=== PATIENT | female | born 1970 | race Caucasian/White ===

== ENCOUNTER 2023-07-25 23:56 | Emergency (ER) | payer BC, SELFPAY ==
[2023-07-25 23:59] VITALS: BP 141/61; PULSE 65; RESP 20; TEMP 36.7; O2SAT 99
--- NOTE | 2023-07-26 01:20 | ED.WOUNDLAC ---
HPI - Wound/Laceration General Chief Complaint: Wound/Laceration Stated Complaint: laceration to earlobe Time Seen by Provider: 07/26/23 01:04 History of Present Illness HPI narrative: 52-year-old female reports for evaluation for a laceration to her left earlobe. Patient states her was accusing her good night approximately 2 and half hours ago when the patient's earring got stuck on the 's nose and ripped her earring out of her lobe. Bleeding controlled. Tetanus not up to date. Related Data Home Medications Medication Instructions Recorded Confirmed No Home Medications 11/20/21 Allergies Allergy/AdvReac Type Severity Reaction Status Date / Time azithromycin Allergy Unknown Unknown Verified 07/26/23 01:08 erythromycin base Allergy Unknown Acute Verified 07/26/23 01:08 abdominal pain Review of Systems Review of Systems: CONSTITUTIONAL: Denies fever, chills EYES: Denies visual changes, redness, or discharge. ENT: Denies rhinorrhea, congestion, sore throat, or otalgia. CARDIOVASCULAR: Denies chest pain, palpitations, or edema. RESPIRATORY: Denies cough or dyspnea. GASTROINTESTINAL: Denies abdominal pain, nausea, vomiting, or diarrhea. GENITOURINARY: Denies dysuria or hematuria. SKIN: See HPI MUSCULOSKELETAL: Denies back pain, joint pain, or myalgia. NEUROLOGIC: Denies headache, numbness, dizziness, or weakness. PSYCHIATRIC: Denies anxiety or depression. [facility] Past Medical History Medical History History of Corcoran's palsy Surgical History Surgical History History of appendectomy (~1982) History of cholecystectomy (~2004) History of hysterectomy (~2015) History of hysteroscopy (~2015) History of laparoscopy (~1989) Exploratory Social History Social History Smoking status: Former smoker Smoking end date: 10/28/01 Alcohol intake: current Exam Narrative: GENERAL: Well-appearing, in no acute distress. Patient resting comfortably in exam bed. She is pleasant and conversational. HEAD: Normocephalic EYES: PERRLA ENT: Nares clear. Mucous membranes moist. Oropharynx without tonsillar hypertrophy exudate or other lesions. Bilateral TMs are villa nonbulging. Normal canals. NECK: Supple. CHEST: No respiratory distress. Clear to auscultation, no adventitious breath sounds. HEART: Regular rate and rhythm. No murmur heard. Normal peripheral pulses. EXTREMITIES: Normal range of motion. No edema. SKIN: Left lobule with linear through and through laceration extending from the earring hole distally. No compromise to cartilage remainder of auricle. Bleeding controlled. NEURO: No focal deficits. Alert and oriented x3. PSYCH: Normal mood and affect. Course Vital Signs Vital signs: Vital Signs Temperature 98.1 F 07/25/23 23:59 Pulse Rate 65 07/25/23 23:59 Respiratory Rate 20 07/25/23 23:59 Blood Pressure 141/61 H 07/25/23 23:59 Pulse Oximetry 99 07/25/23 23:59 Oxygen Delivery Room Air 07/25/23 23:59 Temperature 98.1 F 07/25/23 23:59 Pulse Rate 65 07/25/23 23:59 Respiratory Rate 20 07/25/23 23:59 Blood Pressure 141/61 H 07/25/23 23:59 Pulse Oximetry 99 07/25/23 23:59 Oxygen Delivery Room Air 07/25/23 23:59 Procedures Laceration Laceration 1: Date: 07/26/23 Time: 02:24 Site: other (Left lobule) Side (If applicable): left Size (cm): 1 Description: linear Depth: [id number] Local Anesthetic: lidocaine 1% Amount of anesthesia used (mL): 5 Pre-repair: wound explored, irrigated and irrigated extensively ====== Skin Level ====== Skin layer closed with: nylon Size (cm): 6-0 Number of sutures: 3 Technique: simple, interrupted ====== Subcutaneous Laye
[2023-07-26] MEDS: TETANUS,DIPHTHERIA,AC PERTUSSIS ADULT (0.5 ML) BOOSTRIX IM (01:33)
[2023-07-26] MEDS: LIDOCAINE HCL 1% LOCAL INJ 10 ML VIAL INFILTRATE (01:33)
[2023-07-26 02:37] VITALS: BP 122/80; PULSE 55; RESP 20; O2SAT 100
== END 2023-07-26 02:38 | disposition home or self-care (01) ==
PROVIDERS: Emergency Provider Physician Assistant; PCP Family Medicine
DX: S01.312A Laceration without foreign body of left ear, initial encounter (principal); Z23 Encounter for immunization; Z87.891 Personal history of nicotine dependence; Z90.49 Acquired absence of other specified parts of digestive tract; Z90.710 Acquired absence of both cervix and uterus; X58.XXXA Exposure to other specified factors, initial encounter
CPT/HCPCS: 12051; 90471; 90715; 99282

== ENCOUNTER 2024-12-14 18:50 | Emergency (ER) | payer BC, SELFPAY ==
--- NOTE | 2024-12-14 18:51 | ED.URI ---
HPI - URI/Sore Throat General Chief Complaint: Upper Respiratory Infection Stated Complaint: Cough Time Seen by Provider: 12/14/24 18:50 Source: patient Mode of arrival: ambulatory Limitations: no limitations History of Present Illness HPI Narrative: Mary is a 54-year-old female patient presenting to the clinic today with complaints of a cough, chest congestion, and sinus congestion x8 days. She reports she is getting over influenza. Started to feel better for a day or 2 but then her symptoms came back. Has felt feverish. Does have some shortness of breath. States she is coughing up green phlegm but blowing out clear nasal drainage MD elicited complaint: fever, cough, nasal congestion and other (Chest congestion) Related Data Allergies Allergy/AdvReac Type Severity Reaction Status Date / Time azithromycin Allergy Unknown Unknown Verified 12/14/24 18:51 erythromycin base Allergy Unknown Acute Verified 12/14/24 18:51 abdominal pain Review of Systems Review of Systems: Pertinent positives per HPI. Patient denies any fever, chills, rash, headache, visual changes, dizziness, chest pain, palpitations, nausea, vomiting, diarrhea, constipation, abdominal pain, or any urinary issues. [facility] Past Medical History Medical History Vestibular migraine History of Corcoran's palsy Surgical History Surgical History History of hysterectomy (~2015) History of hysteroscopy (~2015) History of cholecystectomy (~2004) History of laparoscopy (~1989) Exploratory History of appendectomy (~1982) Family History Family History Father Diabetes mellitus Hypertension Mother Diabetes mellitus Hypertension Cerebrovascular accident Depression Grandparent Pancreatic cancer Diabetes mellitus Hypertension Heart disease Social History Social History Social History: caffeine, 2 - 3 cups per day Smoking status: Former smoker Tobacco type: cigarettes Smoking end date: 10/28/04 Alcohol intake: current Alcohol use details: few times a year Substance use: never Substance use type: does not use Lack of Transportation: No Lack of Food: Never True Current Housing: I Have Housing Concerned About Future Housing: No Difficulty Paying Gas/Electric Bills: No Difficulty Paying for Meds: No Currently Unemployed: No Education: Trade/Vocational Certificate Difficulty w/ Childcare or Family Care: No Living arrangements: with family Comments At the time of my signature, I reviewed and agree with the nursing past medical, surgical, social, and family history. There is no relevant family history pertinent to the patient complaint. Exam Narrative: General: Well-developed, morbidly obese, in no apparent distress Head: Normocephalic, atraumatic Eyes: Pupils equally round and reactive to light bilaterally, EOM intact, sclera and conjunctive clear, no discharge, lids normal Ears: TMs intact and clear, ear canals clear, no drainage, grossly hearing normal. Nose: Nares patent, clear nasal discharge, no inflammation, no sinus tenderness. Mouth: Oral pharynx without lesions or masses, good dentition, MMM. Neck: Supple, trachea midline, no enlargement of anterior or posterior cervical nodes, no thyroid masses or goiter palpable. Cardio: Regular rate and rhythm, s1 and s2 normal, no murmur appreciated. Resp: Lung sounds mildly coarse with expiratory wheezing, no rhonchi, rales, or rubs Course Course Emergency Course: Portions of this record may have been created with voice recognition software. Level of Care: Express Care Visit Vital Signs Vital signs: Vital Signs Temperature 36.8 C 12/14/24 18:54 Pulse Rate 100 12/14/24 18:54 Respiratory Rate 20 12/14/24 18:54 Blood Pressure 162/73 H 12/14/24 18:54 Pulse Oximetry 100 12/14/24 18:54 Oxygen Delivery Room Air 12/14/24 18:54 Temperature 36.8 C 12/14/24 18:54 Pulse Rate 100 12/14/24 18:54 Respiratory Rate 20 12/14/24 18:54 Blood Pressure 162/73 H 12/14/24 18:54 Pulse Oximetry 100 12/14/24 18:54 Oxygen Delivery Room Air 12/14/24 18:54 Vital signs reviewed MDM - URI/Sore Throat MDM Narrative Medical decision making narrative: At the time of visit patient is resting comfortably on the exam table. Patient appears to be nontoxic. Plan: I suspect patient has bronchitis. Prescription for doxycycline, prednisone, and albuterol inhaler was sent to the pharmacy. Supportive measures were discussed with the patient and they voiced understanding discharge instructions and agrees to treatment plan. Return precautions reviewed Differential Diagnosis Differential diagnosis: Likely upper respiratory infection, otitis media, sinusitis, viral infection, bronchitis, influenza, pharyngitis and other (COVID) Discharge Plan Discharge Clinical Impression: Bronchitis Patient Disposition: Home, Self-Care Condition: Stable Instructions: Antibiotic Form, Acute Bronchitis (ED) Additional Instructions: Take prescription medications only as prescribed-prednisone, doxycyline, and albuterol inhaler Increase fluids and stay well hydrated Tylenol/motrin for pain/fever Flonase and OTC antihistamines as directed Vicks vapor rub to open sinuses Sinus rinses for congestion Cepacol spray, cough drops, throat lozenges, warm tea with honey/lemon, gargle salt water to soothe throat BRAT diet for diarrhea Clear liquids x 24 hours then advance as tolerated for nausea/vomiting Go to the ED if you develop a worsening in your condition- high fever not controlled by Tylenol or Motrin, dehydration, weakness, lethargy, shortness of breath, or chest pain. Follow up with your PCP in 3-5 days if symptoms persist. Patient Language: Yakut Prescriptions: New doxycycline hyclate 100 mg capsule 100 mg PO BID 7 Days Qty: 14 0RF prednisone 20 mg tablet 40 mg PO DAILY 5 Days Qty: 10 0RF albuterol sulfate 90 mcg/actuation HFA aerosol inhaler 2 puff inhalation Q4-6H PRN (Reason: shortness of breath or wheezing) 30 Days Qty: 8.5 0RF Follow-up/Referrals: UNKNOWN,DOCTOR [Non-Staff] - Time of Disposition: 19:00 Quality NIHSS Nursing Documentation ED NIHSS nursing documentation: reviewed/agree
[2024-12-14 18:54] VITALS: BP 162/73; PULSE 100; RESP 20; TEMP 36.8; O2SAT 100
== END 2024-12-14 19:04 | disposition home or self-care (01) ==
PROVIDERS: Emergency Provider Nurse Practitioner Family
DX: J40 Bronchitis, not specified as acute or chronic (principal); Z87.891 Personal history of nicotine dependence
CPT/HCPCS: 99213; G0463